=== PATIENT | male | born 2000 | race Caucasian/White ===

== ENCOUNTER 2021-06-06 20:46 | Emergency (ER) | payer OTHER ==
[~2021-06-06] VITALS: Ht 182.9 cm; Wt 68.2 kg
--- NOTE | 2021-06-06 22:50 | NUR ---
IV 18GA LAC INITIATED FOR CT. PT TOLERATED WELL.
[2021-06-06] MEDS ORDERED: iohexol 350MG/ML 100ml bottle IV ONE (22:56)
--- NOTE | 2021-06-06 22:57 | NUR ---
c collar placed now per PA
[2021-06-07 00:09] VITALS: BP 114/77
== END 2021-06-07 00:11 | disposition home or self-care (01) ==
LOC: ER 20:47
DX: S20.219A Contusion of unspecified front wall of thorax, initial encounter (principal); M54.2 Cervicalgia; X58.XXXA Exposure to other specified factors, initial encounter; Y93.89 Activity, other specified; Y92.89 Other specified places as the place of occurrence of the external cause; Y99.8 Other external cause status
CPT/HCPCS: 70450; 71275; 72125; 74174; 99285; Q9967